=== PATIENT | female | born 1955 | race Caucasian/White ===

== ENCOUNTER 2017-02-10 12:59 | Day surgery (SDC) | payer OTHER ==
[~2017-02-10] VITALS: Ht 154.9 cm; Wt 56.5 kg
[2017-02-10 14:46] VITALS: Ht 154.9 cm; Wt 56.5 kg
[2017-02-10 15:27] VITALS: BP 125/68; PULSE 77; RESP 14
[2017-02-10] MEDS ORDERED: MIDAZOLAM 1 MG/ML 2 ML INJ ONE ×3 (16:09)
[2017-02-10] MEDS ORDERED: FENTAnyl 50 MCG/ML VIAL ONE (16:09)
[2017-02-10 16:49] VITALS: BP 110/60; PULSE 68; RESP 16
--- NOTE | 2017-02-10 21:03 | GILP ---
DATE OF PROCEDURE: NAME OF PROCEDURE: Colonoscopy. SURGEON: Lex Gross MD PREMEDICATION: Monitored anesthesia care by anesthesiologist. INSTRUMENT USED: Olympus colonoscope. PREPARATION: Adequate. TECHNIQUE: After informed consent, with the patient/relatives understanding the procedure, its raji cations potential risks and complications, including but not limited to allergic reaction, bleeding, perforation, infection, missed lesions and after all pertinent questions were answered to the patie nt's satisfaction, the patient/relatives signed the witnessed informed consent. Following this, premedication was administered slowly IV push by under careful cardiovascular and re spiratory monitoring with pulse oximetry, automatic blood pressure and equipment monitor phototypesetting. Once the sedativ e effect was achieved, the patient was placed in the left lateral decubitus position, digital rectal examination was performed. The colonoscope was then introduced and advanced under visual control th roughout all segments of the colon including the rectum, sigmoid, descending colon, splenic flexure, transverse colon, hepatic flexure, ascending colon and finally reaching the cecum which was clearly identified by transillumination, finger indentation and the ileocecal valve. Careful examination of the mucosa of the lower gastrointestinal tract both on insertion as well as withdrawal of the instr ument disclosed the following findings: Rectal Examination: No evidence of perirectal disease, no masses. Colonic Mucosa: The colonic mucosa is entirely unremarkable. The ileocecal valve was clearly ident ified and appears unremarkable. The instrument was withdrawn, re-examining the mucosa in detail. N o additional abnormalities are noted with exception of moderate-sized internal hemorrhoids. The instrument was then withdrawn. The patient tolerated the procedure well and was transferred out of the endoscopy suite awake and in good condition to continue recovery under observation. IMPRESSION: 1. Normal colonic mucosa to cecum. 2. Moderate-sized internal hemorrhoids. PLAN: The patient will be advised to follow a high-fiber diet. Annual Hemoccult stool testing is r ecommended, and screening colonoscopy in 10 years is recommended. Dictated By: LEX GROSS MS/LEEANN Conf#: [id number] DID#: [id number]
== END 2017-02-10 17:26 | disposition home or self-care (01) ==
LOC: GIL 12:59
PROVIDERS: ATTEND Internal Medicine Gastroenterology
DX: Z12.11 Encounter for screening for malignant neoplasm of colon (principal); K64.8 Other hemorrhoids
CPT/HCPCS: 45378; J2250; J3010; Z7610